=== PATIENT | male | born 1955 | race Caucasian/White ===

== ENCOUNTER 2016-11-15 17:23 | Observation (INO) ==
--- NOTE | 2016-11-15 18:54 | CT Report ---
CT head/brain wo con Indication: Slurred speech. Left facial numbness. Comparison: None. Technique: CT of the brain was performed without administration of intravenous contrast. The CT examination was performed using one or more of the following dose reduction techniques: Automatic exposure control, adjustment of the mA and kV according to patient size, use of acute or iterative reconstruction techniques. Findings: There is no evidence of acute intracranial hemorrhage, mass, or infarction. Ventricles appear within normal limits. Moderately dense bilateral basal ganglia calcifications are present. Bilateral areas of diminished white matter attenuation are present within the frontal white matter with additional lacunar infarction noted within the right basal ganglia. Additionally, minimally asymmetric subcortical hypoattenuation of the right frontal lobe white matter is present could reflect subacute ischemia. The basal cisterns are patent. No significant abnormality is demonstrated to involve the posterior fossa or cerebellum. Orbits and globes demonstrate no evidence of significant pathology. The paranasal sinuses are clear. No significant abnormality is demonstrated to involve the mastoid air cells. The calvarium and overlying soft tissues demonstrate no evidence of acute pathology. Impression: 1. Bilateral areas of diminished white matter attenuation are seen, compatible with microvascular ischemia. Right basal ganglia lacunar infarctions present. 2. No specific evidence of acute ischemia is present. There may be minimal asymmetric hypoattenuation subcortical white matter within the anterior right frontal lobe. MRI brain without intravenous contrast administration is recommended for further evaluation. 11/15/2016 6:49 PM PROCEDURE INTERPRETED AT [facility] DEPARTMENT OF RADIOLOGY Final Report Signed by: Dr. Dre Lynn
--- NOTE | 2016-11-15 20:29 | Emergency Department Note ---
Arrival - Arrival Chief Complaint: Neuro ED Nursing Triage Note: Brought in by EMS c/o left side weakness and slurred speech-onset 1600 today, symptoms resolved at current. AOX4 now. Denies pain. Mode of Arrival: Stretcher Time Seen by Provider: 11/15/16 17:52 - History of Present Illness HPI Narrative: This is a 61-year-old white male who stopped smoking 1 month ago and stopped drinking for 5 years ago who has hypertension not on hypertensive medications and she was fishing today when he developed slurred speech and weakness of his left upper extremity. He went to the [place] [facility] in [facility] and was transferred to the emergency department at [place] with a possible stroke which was resolving. The patient denies any headache fever neck pain chest pain shortness of breath palpitations nor syncope. CT scan of the brain reveals old lacunar infarcts in the right basal ganglia but no acute infarction or intracranial bleeding. The patient agreed to stay in the hospital for echocardiogram carotid Doppler studies and MRI scan of the brain. Allergies/Adverse Reactions: Allergies Allergy/AdvReac Type Severity Reaction Status Date / Time No Known Allergies Allergy Verified 11/15/16 17:37 Home Medications: Home Medications Medication Instructions Recorded Confirmed Type No Known Home Medications [No 11/15/16 11/15/16 History Known Home Medications] Review of System - Review of System Constitutional: Absent: fever, night sweats Eyes: Absent: redness, vision change Head/Ears/Nose/Throat: Absent: epistaxis Respiratory: Absent: respiratory distress, wheezing Cardiovascular: Absent: orthopnea, edema Gastrointestinal: Absent: constipation, hematemesis Genitourinary male: Absent: hematuria, discharge Musculoskeletal: Absent: joint swelling, lower back pain Skin: Absent: change in color, change in hair/nails Neurological: Absent: numbness Psychiatric: Absent: suicidal thoughts, homicidal thoughts Endocrine: Absent: heat intolerance, polydipsia, polyuria Hematological/Lymphatic: Absent: easy bruising Allergic/Immunologic: Absent: urticaria, itchy eyes Medical,Surgical,& Family Hx - Medical History Cardio: History of: Hypertension - Social History Smoking Status: Former smoker Frequency of Alcohol Use: None Type of Drug Use: None Exam Vital Signs: Vital Signs Temperature 98.2 F 11/15/16 17:32 Pulse Rate 86 11/15/16 18:45 Respiratory Rate 18 11/15/16 18:45 Blood Pressure 172/109 11/15/16 18:45 O2 Sat by Pulse Oximetry 96 11/15/16 18:45 - General Exam limited due to: ALOC - Eye Eye exam: Present: PERRL, EOMI - ENT ENT exam: Present: normal exam, normal oropharynx - Neck Neck exam: Present: normal inspection, full ROM - Chest Chest inspection: Present: normal inspection - Respiratory Respiratory exam: Present: normal lung sounds bilaterally - Cardiovascular Cardiovascular exam: Present: regular rate, normal rhythm - Abdominal Exam Abdominal exam: Present: soft, normal bowel sounds - Extremities Exam Extremities exam: Present: normal inspection, full ROM - Back Exam Back exam: Present: normal inspection, full ROM - Neurological Exam Neurological exam: Present: alert, oriented X3, CN II-XII intact, normal gait, reflexes normal. Absent: motor sensory deficit - Psychiatric Psychiatric exam: Present: normal affect, normal mood - Skin Skin exam: Present: warm, dry Course Course Narrative: Because the CT scan showed old strokes the patient had symptoms compatible with a TIA with slurred speech and left upper extremity weakness it seems reasonable patient to be admitted to the hospital for an MRI scan, Doppler carotid Doppler studies and echocardiogram. Disposition Clinical Impression: TIA (transient ischemic attack) Disposition: Still a Patient Additional Instructions: Because the CT scan showed old strokes the patient had symptoms compatible with a TIA with slurred speech and left upper extremity weakness it seems reasonable patient to be admitted to the hospital for an MRI scan, Doppler carotid Doppler studies and echocardiogram.
[2016-11-15] MEDS ORDERED: LABETALOL 20 MG/4 ML SYRINGE IV PRN (21:09)
--- NOTE | 2016-11-15 21:19 | Hospitalist History & Physical ---
Assessment and Plan (1) Hypertension Status: Acute Current Visit: Yes (2) TIA (transient ischemic attack) Status: Acute Assessment and plan: Our plan for this patient 1. Admit to monitored bed 2. Order MRI of the brain 3. Carotid ultrasound 4. 2D echo 5. Neurology consult 6. Aspirin 7. Treat the blood pressure as the exceeds 220/120 8. Follow-up on labs 9. Fasting lipid profile Current Visit: Yes History of Present Illness Chief complaint: Slurred speech weakness and left upper extremity History of present illness: Mr. العراقي is a 61 year old male with past medical history significant for hypertension who was in normal state of health till today. Patient was fishing and noticed that his left arm felt weak his speech was slurring and he felt dizzy. He went up to a [facility] in in [place] and they recommended he be transferred to an emergency room. Patient was sent to our ER for further evaluation. Patient's initial CT scan did not show an acute bleed but did show some lacunar strokes in the past. Patient has no history of strokes and I was consulted to admit him. Home Medications Medication Instructions Recorded Confirmed Type No Known Home Medications [No 11/15/16 11/15/16 History Known Home Medications] Allergies Allergy/AdvReac Type Severity Reaction Status Date / Time No Known Allergies Allergy Verified 11/15/16 17:37 Medical,Surgical,& Family Hx - Medical History Cardio: History of: Hypertension - Surgical History Surgical History: noncontributory (None) - Family History Family History: Reports;: Family Hypertension - Social History Smoking Status: Former smoker Frequency of Alcohol Use: None Type of Drug Use: None 12 point system: reviewed and no additional remarkable complaints except as stated Exam - Constitutional Vitals: Period Temp Pulse Resp BP Sys/Bhandari Pulse Ox Last 24 Hr 98.2 F-98.2 F 83-90 16-18 166-189/103-109 96-98 General appearance: normal weight - Head Head exam: Present: normal inspection - Eye Eye exam: Present: EOMI Pupils: Present: DAYAMI - ENT ENT exam: Present: normal exam - Neck Neck exam: Present: normal inspection - Respiratory Respiratory exam: Present: clear to auscultation bilaterally - Cardiovascular Cardiovascular exam: Present: regular rate and rhythm - GI/Abdominal GI/Abdominal exam: Present: normal bowel sounds - Extremities Exam Extremities exam: Present: normal inspection - Back Exam Back exam: Present: normal inspection - Neurological Exam Neurological exam: Present: other (Patient has a left facial droop. That has improved during my conversation with him. He has a midline tongue. He has some mild upper extremity weakness noted on the left. Gait is appropriate.) - Psychiatric Psychiatric exam: Present: normal affect - Skin Skin exam: Present: normal color Results - Labs Labs: No labs ordered by the emergency room physician they have since been ordered stat. Quality Measures - Stroke Onset of Symptoms Date: 11/15/16 Onset of Symptoms Time: 16:00
[2016-11-15] MEDS ORDERED: ENOXAPARIN 40 MG/0.4 ML SYRINGE SUBCUT SCH (21:30)
[2016-11-15 22:05] LABS: Risk Ratio 5.02; VLDL CHOLESTEROL 47.2 MG/DL
[2016-11-15 23:13] LABS: Albumin 4.1 G/DL (3.4-5.0); Bilirubin,Total 0.5 MG/DL (0.2-1.0); Calcium 9.3 MG/DL (8.5-10.1); Osmolality,Calculated 284.1 MOS/KG (273-304); Total Protein 6.9 G/DL (6.4-8.3)
[2016-11-16 01:30] LABS: Basophils # 0.1 10*3/uL (0.0-0.2); Basophils % 0.7 % (0.0-0.8); Eosinophils # 0.1 10*3/uL (0.0-0.87); Eosinophils % 1.5 % (0.00-10.9); Hematocrit 40.8 VOL% (42.0-52.0); Hemoglobin 14.4 GM/DL (14.0-18.0); Immature Granulocytes % 0.1 %; Immature Granulocytes Absolute 0.01 #; Lymphocytes # 2.1 10*3/uL (1.4-4.0); Lymphocytes % 28.6 % (21.2-54.2); Mean Corpuscular HGB Conc 35.3 GM/DL (32-36); Mean Corpuscular Hemoglobin 31 PG (27-34); Mean Corpuscular Volume 87.6 FL (87-102); Mean Platelet Volume 10.2 FL (9.6-12.0); Monocytes # 0.8 10*3/uL (0.11-0.8); Monocytes % 10.4 % (1.7-12.7); Neutrophils # 4.4 10*3/uL (1.4-7.4); Neutrophils % 58.7 % (38.7-73.9); Platelet Count 214 T/CUMM (130-400); Red Blood Count 4.66 MC/CUMM (3.8-5.5); Red Cell Distribution Width 11.7 % (9.3-17.3); White Blood Count 7.4 T/CUMM (4-12)
[2016-11-16] MEDS ORDERED: ASPIRIN 325 MG TABLET PO SCH (09:00)
--- NOTE | 2016-11-16 09:10 | Ultrasound Report ---
History: CVA symptoms. Slurred speech. Left facial numbness Date: 11/16/2016 Study: Carotid duplex ultrasound Comparison exam: No previous Color Doppler, wave form analysis, and grayscale analysis of the cervical carotid arteries was performed. There is mild noncalcified plaque in either carotid bulb. Waveform analysis shows proper directional flow of the cervical carotid arteries. There is antegrade flow in either vertebral artery. The distal right ICA measures 6.0 mm diameter; the left measures 5.5 mm diameter. Peak systolic velocities are as follows: Right CCA 81 cm/s Right ICA 125 cm/s Right ECA 101 cm/s Right vertebral 95 cm/s Right IC/CC ratio 1.5 Left CCA 94 cm/s Left ICA 84 cm/s Left ECA 77 cm/s Left vertebral 75 cm/s Left IC/CC ratio 0.9 There is 0-15% diameter reduction narrowing of either internal carotid artery using indirect NASCET criteria. Ultrasound images were captured and archived. Impression: No hemodynamically significant internal carotid artery stenosis PROCEDURE INTERPRETED AT [facility] DEPARTMENT OF RADIOLOGY Final Report Signed by: Dr. Lili Castro
--- NOTE | 2016-11-16 14:05 | Hospitalist Progress Note ---
Assessment and Plan (1) TIA (transient ischemic attack) Status: Acute Assessment and plan: mri, asa, dr. Corral Current Visit: Yes (2) Hypertension Status: Acute Assessment and plan: losartan 25 mg po day Current Visit: Yes Hospitalist: Subjective Interval history: Patient reports he feels like everything is returned back to normal. He has may be a small facial droop on the left. Patient is not taking aspirin at home. We are waiting an MRI and Dr. Dale's evaluation. Exam - Constitutional Vitals: Period Temp Pulse Resp BP Sys/Bhandari Pulse Ox Last 24 Hr 96.9 F-98.8 F 66-90 16-18 151-189/84-109 94-98 Exam: Heart Rate-[RRR] Lungs-[CTAB] GI-[+bs soft, NT] Ext-[no edema] Neuro [Motor 5/5], [alert and oriented times 3] small left-sided facial droop psych [normal mood and affect] General [no acute distress] Results - Labs CBC & BMP: 11/16/16 01:23 11/15/16 18:55 Lab Results: I have reviewed the past 24 hour labs - Diagnostic Findings Procedure: CT: report reviewed by me (Bilateral diminished white matter attenuation seen compatible with microvascular ischemia. No acute ischemia appreciated), Ultrasound: report reviewed by me (No significant internal carotid stenosis) Quality Measures - Stroke Onset of Symptoms Date: 11/15/16 Onset of Symptoms Time: 16:00
--- NOTE | 2016-11-16 14:26 | Magnetic Resonance Report ---
History: Left arm weakness. Slurred speech Date: 11/16/2016 Study: MRI brain without contrast Comparison exam: CT head November 15, 2016 The brain was imaged in 3 planes on the 1.5 Deborah magnet without IV contrast, to include diffusion, T2, FLAIR, gradient echo, and T1-weighted sequences. The exam was performed within 24 hours of admission. The ventricles are midline in position without evidence of hydrocephalus. There is no Chiari I malformation. There is no gross pituitary mass. There is a wedge-shaped area of restricted diffusion in the right mina radiata extending into the posterior aspect of the right putamen and right external capsule compatible with ischemia between 6 hours and 4 days old. There is no parenchymal hemorrhage or abnormal mass effect. There is a mild to moderate amount of patchy increased FLAIR and T2 signal in the periventricular white matter and centrum semiovale compatible with changes of small vessel disease. There is a prominent perivascular space with CSF signal intensity at 9 mm diameter inferior to the right putamen. There is no extra-axial hematoma. There is a normal flow void in the superior sagittal sinus. There is no gross flow abnormality in the [place] area. There is no obvious cerebellopontine angle mass. Impression: Area of acute ischemia in a right MCA distribution involving the right mina radiata and extending into the posterior aspect of the right putamen and right external capsule. No parenchymal hemorrhage Chronic periventricular small vessel changes PROCEDURE INTERPRETED AT [facility] DEPARTMENT OF RADIOLOGY Final Report Signed by: Dr. Lili Castro
[2016-11-16] MEDS ORDERED: LOSARTAN 25 MG TABLET PO SCH (14:30)
--- NOTE | 2016-11-16 15:29 | Neurology Consult Note ---
History of Present Illness History of present illness: Mr. العراقي is a 61 year old male with past medical history significant for hypertension who was in normal state of health till today. Patient was fishing and noticed that his left arm felt weak his speech was slurring and he felt dizzy. He went up to a [facility] in in [place] and they recommended he be transferred to an emergency room. Patient was sent to our ER for further evaluation. Patient's initial CT scan did not show an acute bleed but did show some lacunar strokes in the past. MRI brain revealed acute right parietal lobe acute infarct Home Medications Medication Instructions Recorded Confirmed Type No Known Home Medications [No 11/15/16 11/15/16 History Known Home Medications] Allergies Allergy/AdvReac Type Severity Reaction Status Date / Time No Known Allergies Allergy Verified 11/15/16 17:37 12 point system: reviewed and no additional remarkable complaints except as stated Medical,Surgical,& Family Hx - Medical History Cardio: History of: Hypertension - Surgical History Cardiac Surgeries: Patient Denies: Cardiac Catheterization Neurologic Surgeries: Patient denies: Neurologic Surgery - Family History Family History: Reports;: Family Hypertension - Social History Smoking Status: Former smoker Frequency of Alcohol Use: None Type of Drug Use: None Exam - Constitutional Vitals: Period Temp Pulse Resp BP Sys/Bhandari Pulse Ox Last 24 Hr 96.9 F-98.8 F 66-90 16-18 151-189/84-109 94-98 Exam: GENERAL: Patient is in no acute distress. NECK: Neck is supple. There is no JVD. No carotid bruits present. No thyroid masses. CVS: First and second heart sounds are normal. There is no S3 present. Regular rate and rhythm. RESPIRATORY: Lungs are clear to auscultation without any rales or rhonchi. ABDOMEN: Soft and non-tender. Bowel sounds are present. There is no hepatosplenomegaly. EXT: There is no palpable edema. Peripheral pulses are present. Skin: No rashes Central Nervous system: General: Alert, awake and Oriented x 3 Speech: Fluent Comprehension: Intact and normal Facial expressions: Normal Cranial Nerves: CN1/Olfactory: Normal CN II/ Optic: Normal, Visual Guerra unreliable CN III, and : DAYAMI & EOMI CN V: Normal & intact CN VII: face is symmetric CNVIII: Normal CN XI/X/XI/XII: Intact and Normal Motor: Bulk and Tone is normal. Strength in the right 5/5 Strength in the left 5/5 Sensory: Mildly decreased for all the modalities of PP, LT and temp sense in the left arm Reflexes: 1+ and symmetrical Cerebellar function: Normal finger to nose and heel to monsivais testing. Toes: Equivocal Gait: Normal heel to heel and toe to toe and tandem walk. Results - Labs CBC & BMP: 11/16/16 01:23 11/15/16 18:55 Assessment and Plan (1) Acute CVA (cerebrovascular accident) Status: Acute Assessment and plan: Agree with aspirin a day. Patient has recovered remarkably from his deficits Carotid Dopplers are negative Okay to go home when okay with PCP Follow-up in 4 weeks Current Visit: Yes (2) Hyperlipidemia Status: Acute Assessment and plan: Start and continue Lipitor Current Visit: Yes (3) Tobacco abuse counseling Status: Acute Assessment and plan: Counseled him regarding cessation of tobacco use in any form or fashion. Current Visit: Yes Specialty Discharge - Follow Up or Referrals Follow up with: Brett Corral MD [Physician] - 1 Month
[2016-11-16 16:12] VITALS: BP 157/107
--- NOTE | 2016-11-16 16:51 | Discharge Summary ---
<Jocelynn Palacio - Last Filed: 11/16/16 16:43> Hospital Course - Hospital Course Hospital Course: Mr. العراقي is a 61 yr old male with a past medical history of hypertension but was not on any medications that presented to the ED on 11/15 with complaints of left arm weakness. Pt. reported that he was out fishing when he noted the weakness. He also experienced slurring of speech and dizziness. He reported to a [facility] in [place] and was told to report to an emergency room immediately. Pt arrived here. Initial head CT was negative for anything acute but showed bilateral areas of white matter attenuation including right basal ganglia lacunar infarct. Pt was admitted for further evaluation and treatment. Pt. was started on daily asa. MRI/carotid doppler was ordered. Neuro was consulted. Dopplers were negative. MRI showed acute right mina radiata extending into the posterior aspect of the right putamen and right external capsule. Pt has recovered from his deficits. Per neurology it is ok for patient to be discharged. He is instructed to follow up with PCP for blood pressure in 1 week. He will be discharged on aspirin for anticoagulation, Lipitor and hypertension medicines. He is to follow up with Dr. Corral in 4 weeks. Patient seen and examined. Hospital course reviewed and edited. Specialty Discharge - Follow Up or Referrals Follow up with: Brett Corral MD [Physician] - 1 Month Discharge Plan - Discharge Data Disposition: Disch To Home/Self Care - Discharge Medications New Losartan [Cozaar] 50 mg PO DAILY #60 tablet Aspirin Tab 325 mg PO DAILY tablet Atorvastatin [Lipitor] 40 mg PO BEDTIME #30 tablet - Follow Up or Referral Follow Up: Brett Corral MD [Physician] - 1 Month pmd, [Other] - 1 Week (blood pressure ) - Forms/Instructions Exam - Constitutional Vitals: Period Temp Pulse Resp BP Sys/Bhandari Pulse Ox Last 24 Hr 96.9 F-98.8 F 66-90 16-20 151-189/84-109 94-98 Discharge Results Procedures and tests throughout hospitalization: Pending Orders 11/15/16 21:09 Drug Screen, Urine Routine Labs on day of discharge: Labs from last 24 hours 11/16/16 11/16/16 11/16/16 05:47 01:23 01:23 WBC 7.4 RBC 4.66 Hgb 14.4 Hct 40.8 L MCV 87.6 MCH 31 MCHC 35.3 RDW 11.7 Plt Count 214 MPV 10.2 Neut % (Auto) 58.7 Lymph % (Auto) 28.6 [place] % (Auto) 10.4 Eos % (Auto) 1.5 Baso % (Auto) 0.7 Neut # (Auto) 4.4 Lymph # (Auto) 2.1 [place] # (Auto) 0.8 Eos # (Auto) 0.1 Baso # (Auto) 0.1 Immature Gran % 0.1 Nucleated RBC % 0.0 Immature Gran # 0.01 Nucleated RBCs # 0.00 Immature Plt Fraction 0.0 Sodium Potassium Chloride Carbon Dioxide Anion Gap BUN Creatinine GFR Calculation BUN/Creatinine Ratio Glucose Hemoglobin A1c Calculated Osmolality Calcium Total Bilirubin AST ALT Alkaline Phosphatase Troponin I < 0.015 < 0.015 Total Protein Albumin Globulin Albumin/Globulin Ratio Triglycerides Cholesterol LDL Cholesterol VLDL Cholesterol HDL Cholesterol Heart Disease Risk Ratio 11/15/16 11/15/16 11/15/16 18:55 18:55 18:55 WBC RBC Hgb Hct MCV MCH MCHC RDW Plt Count MPV Neut % (Auto) Lymph % (Auto) [place] % (Auto) Eos % (Auto) Baso % (Auto) Neut # (Auto) Lymph # (Auto) [place] # (Auto) Eos # (Auto) Baso # (Auto) Immature Gran % Nucleated RBC % Immature Gran # Nucleated RBCs # Immature Plt Fraction Sodium 142 Potassium 4.0 Chloride 108 H Carbon Dioxide 26 Anion Gap 12.0 BUN 19 H Creatinine 0.90 GFR Calculation 113 BUN/Creatinine Ratio 21.00 H Glucose 93 Hemoglobin A1c 5.6 Calculated Osmolality 284.1 Calcium 9.3 Total Bilirubin 0.50 AST 13 ALT 26 Alkaline Phosphatase 91 Troponin I < 0.015 Total Protein 6.9 Albumin 4.1 Globulin 2.8 Albumin/Globulin Ratio 1.4 Triglycerides Cholesterol LDL Cholesterol VLDL Cholesterol HDL Cholesterol Heart Disease Risk Ratio 11/15/16 18:55 WBC RBC Hgb Hct MCV MCH MCHC RDW Plt Count MPV Neut % (Auto) Lymph % (Auto) [place] % (Auto) Eos % (Auto) Baso % (Auto) Neut # (Auto) Lymph # (Auto) [place] # (Auto) Eos # (Auto) Baso # (Auto) Immature Gran % Nucleated RBC % Immature Gran # Nucleated RBCs # Immature Plt Fraction Sodium Potassium Chloride Carbon Dioxide Anion Gap BUN Creatinine GFR Calculation BUN/Creatinine Ratio Glucose Hemoglobin A1c Calculated Osmolality Calcium Total Bilirubin AST ALT Alkaline Phosphatase Troponin I Total Protein Albumin Globulin Albumin/Globulin Ratio Triglycerides 236 H Cholesterol 276 H LDL Cholesterol 135.0 VLDL Cholesterol 47.2 HDL Cholesterol 55 Heart Disease Risk Ratio 5.02 DS: Provider Date of admission: 11/15/16 21:09 Primary care physician: . No PCP Attending physician on admission: Rikki Rizo MD Consults: 11/15/16 21:09 Consult to Case Mgmt/Social Srvs [CONS] Routine Reason for Case Mgmt/Social Srvs: Discharge Planning Consult to Occupational Therapy [CONS] Routine Reason for Occupational Therapy: Evaluate and Treat Consult Comment: Stroke Consult to Physical Therapy [CONS] Routine Reason for Physical Therapy: Evaluate and Treat Consult Comment: stroke Consult to Speech Therapy [CONS] Routine Reason for Speech Therapy: CVA Consult Comment: with/without possible aspiration 11/15/16 21:16 Consult to Physician [CONS] Routine Comment: CVA Consulting Provider: Brett Corral Person Notified: Gretchen Date Notified: 11/16/16 Time Notified: 09:00 Discharging clinician: Jocelynn Palacio NP <Mariely Ward R - Last Filed: 11/16/16 17:21> Hospital Course - Time spent with patient Time with patient DS: Less than 30 minutes (25 min) Diagnosis - Discharge Diagnosis (1) TIA (transient ischemic attack) Status: Acute (2) Hypertension Status: Acute Discharge Plan - Discharge Data Condition at Discharge: Stable Discharge Diet: heart healthy Activity: resume usual activities as tolerated Hygiene: no restrictions Weight Bearing at Discharge: full weight bearing Driving: other (not until cleared by neurology) Exam - Constitutional Exam: see note from today
--- NOTE | 2016-11-16 18:31 | ECHO Report ---
Ti العراقي Exam Date: 11/16/2016 08:20 Referring Physician: Technologist: Niharika Mae RDCS Age: 61 Ht (in): 72 Wt (lb): 195 Gender: M Exam Location: [facility] Echo Indications: Weakness, Essential (primary) hypertension, Transient cerebral ischemic attack, unspecified BP: 157 / 90 HR: 73 Rhythm: Sinus Technical Quality: Technically difficult study IMPRESSIONS Technically difficult study. Left ventricular ejection fraction is estimated at 50-55%. Mild mitral leaflet thickening with trace mitral valve regurgitation. Mild aortic sclerosis without stenosis. Trace to mild tricuspid valve regurgitation. MEASUREMENTS (Male / Female) Normal Values 2D ECHO LV Diastolic Diameter PLAX 4.4 cm 4.2 - 5.9 / 3.9 - 5.3 cm LV Systolic Diameter PLAX 2.5 cm LV Fractional Shortening PLAX 44.1 % IVS Diastolic Thickness 0.9 cm 0.6 - 1.0 / 0.6 - 0.9 cm LVPW Diastolic Thickness 0.9 cm 0.6 - 1.0 / 0.6 - 0.9 cm RV Internal Dim ED PLAX 3.5 cm Aortic Root Diameter 3.8 cm LA Systolic Diameter LX 2.5 cm 3.0 - 4.0 / 2.7 - 3.8 cm DOPPLER TR Peak Velocity 252.0 cm/s TR Peak Gradient 25.4 mmHg FINDINGS Left Ventricle Normal left ventricular cavity size. Normal left ventricular wall thickness. Left ventricular ejection fraction is estimated at 50-55%. Right Ventricle The right ventricle is normal in size and function. Right Atrium The right atrium is normal in size. Left Atrium The left atrium is normal in size. Mitral Valve Mild mitral leaflet thickening with trace mitral valve regurgitation. Aortic Valve Mild aortic sclerosis without stenosis. Tricuspid Valve Morphologically normal tricuspid valve. Trace to mild tricuspid valve regurgitation. Tricuspid regurgitation velocities suggest a PAP of 35 mmHg. Pulmonic Valve Morphologically normal pulmonic valve without significant stenosis. There is no pulmonic regurgitation. Pericardium Normal pericardium without effusion. Aorta Normal ascending aorta dimension. Doug Quevedo (Electronically Signed) Final Date: 16 November 2016 18:08
[2016-11-16] MEDS ORDERED: ATORVASTATIN 10 MG TABLET PO SCH (21:00)
== END 2016-11-16 18:25 | disposition home or self-care (01) ==
LOC: EDUNIT# → EDBD → N.ED 17:23 → N.EDINP 17:23 → SUATTDRO 21:09 → N.TELES 21:51
PROVIDERS: ADMIT Internal Medicine; ATTEND Internal Medicine